=== PATIENT | male | born 1960 | race Caucasian/White ===

== ENCOUNTER 2017-03-18 07:55 | Day surgery (SDC) | payer OTHER, SELFPAY | END 2017-03-18 14:38 | disposition home or self-care (01) | PROVIDERS: Family Provider Internal Medicine Adolescent Medicine; Visit Provider Orthopaedic Surgery | DX: M17.0 Bilateral primary osteoarthritis of knee (principal); E11.9 Type 2 diabetes mellitus without complications; M23.203 Derangement of unspecified medial meniscus due to old tear or injury, right knee | CPT/HCPCS: 29881; 29879; 73560; 76000; 82962; 96375; J2405 ==

== ENCOUNTER → 2017-04-30 10:01 | Outpatient (CLI) | payer OTHER, SELFPAY ==
--- NOTE | 2017-04-30 10:05 | XR_ITS ---
XR knee LT 4V HISTORY: ITS.REASON: left knee pain ORDERING PHYSICIAN: Amos Grullon MD PATIENT AGE: 56 years COMPARISON: 09/19/2015 FINDINGS: Weightbearing views are performed. Severe osteoarthritic changes are present involving the medial compartment and patellofemoral joint. There is mild lateral tibial translation of 6 mm. Osteophytes are present at the knee joint There is a knee joint effusion with increased density in the suprapatellar region. IMPRESSION: Severe osteoarthritis of the left knee as described above which may be slightly worse when compared to the previous exam
== END ==
PROVIDERS: PCP Internal Medicine Adolescent Medicine; Visit Provider Orthopaedic Surgery
DX: M25.562 Pain in left knee (principal)
CPT/HCPCS: 73564

== ENCOUNTER → 2018-05-22 11:32 | Outpatient (CLI) | payer OTHER, SELFPAY ==
--- NOTE | 2018-05-22 11:37 | XR_ITS ---
XR knee LT 4V HISTORY: Left knee pain ITS.REASON: 4 views weightbearing ORDERING PHYSICIAN: Amos Grullon MD PATIENT AGE: 57 years COMPARISON: 04/30/2018 FINDINGS: Weightbearing views are performed along with patellar view. There are moderate to severe osteoarthritic changes of the medial compartment and patellofemoral joint. There is loss of the knee joint space medially with osteophyte formation and mild lateral tibial subluxation of 7 mm. No fracture or dislocation. There may be a small suprapatellar effusion. IMPRESSION: Overall no change in the moderate to severe osteoarthritic change with a small knee joint effusion
== END ==
PROVIDERS: PCP Internal Medicine Adolescent Medicine; Visit Provider Orthopaedic Surgery
DX: M17.12 Unilateral primary osteoarthritis, left knee (principal)
CPT/HCPCS: 73564

== ENCOUNTER → 2018-06-11 12:02 | Outpatient (CLI) | payer OTHER, SELFPAY ==
--- NOTE | 2018-06-11 | NM_ITS ---
History and Indications: Hypertension, diabetes, hyperlipidemia, tobacco use, shortness of breath and fatigue Procedure: Patient received a 0.4 mg of intravenous Lexiscan, resting heart rate was 92 bpm resting blood pressure 134/85, with Lexiscan maximum heart rate achieved was 112 bpm which is less than 85% of the maximum predicted heart rate and a blood pressure was 151/89. With Lexiscan patient under shortness of breath Electrocardiogram: Resting electrocardiogram showed sinus rhythm, with Lexiscan there is less than 1.[address] segment depression noted from the baseline EKG. The EKG portion of the Lexiscan Myoview is nondiagnostic. Cardiac stress and resting SPECT images: Cardiac stress and resting SPECT images were obtained using technetium 99 Myoview 30.7 mCi at stress and 10.8 mCi at rest. Gated SPECT further analysis of segmental wall motion and calculation of the ejection fraction also done. Cardiac stress and the rest images show a small area of decreased tracer activity in the anteroseptal, inferior and posterobasal wall mostly in the fixed pattern likely secondary to prior nontransmural myocardial scarring, computer derived ejection fraction of 58% with mild anteroseptal and inferior wall hypokinesis. Right ventricle is normal size and contractility. Conclusion: 1. The EKG portion of the Lexiscan Myoview is nondiagnostic. 2. Scintigraphic evidence of nontransmural myocardial scarring involving the anteroseptal, inferior and posterobasal wall, computer derived ejection fraction 58% segmental wall motion abnormality described above, right ventricle is normal size and contractility. 3. Abnormal Lexiscan Myoview study.
--- NOTE | 2018-06-11 14:41 | HMH.ITSHM ---
Current Home Medications as stated by this patient Gerardo Nicolas or territory account representative. [] metformin tamsulosin victoza humalog losartan levothyroxin
== END ==
PROVIDERS: PCP Internal Medicine Adolescent Medicine; Visit Provider Internal Medicine Adolescent Medicine
DX: R07.2 Precordial pain (principal)
CPT/HCPCS: 78452; 93017; A9502; J2785

== ENCOUNTER → 2018-06-15 10:37 | Outpatient (CLI) | payer OTHER, SELFPAY ==
[2018-06-15 11:52] LABS: Prostate Specific Ag Screen 1.3 ng/mL (0.0-4.0)
--- NOTE | 2018-06-15 15:14 | US_ITS ---
US scrotum Ordering Physician: Jorje Mayo MD Patient Age: 57 years: Male HISTORY: ITS.REASON: scrotal swelling Large right scrotum getting larger several years . TECHNIQUE: Ultrasound scrotum bilateral COMPARISON : None available ======== RIGHT TESTICLE:....3.1 cm length x4.1 x 3.85 cm There is a large hydrocele associated with the right hemiscrotum... Fairly clear Fluid surrounds the right testicle. Right testicle itself appears normal echotexture and appearance with no mass. The head of right epididymis appears normal measuring up to 9 x 5.5 mm. Normal color Doppler flow is seen to both testicles. No testicular mass is otherwise ========= LEFT TESTICLE:... 4.3 cm x3.25 cm X 2.36 cm. Left testicle appears intact with no mass.: Normal Doppler flow. Only scant increased fluid about the left testicle Head of left epididymis is slightly larger measuring up to 1.1 x 1 8 5-cm. IMPRESSION: .... 1. Large right hydrocele. .... Fairly clear Fluid surrounds the right testicle 2. The right and left testicle appear normal satisfactory:. ... Normal color Doppler flow.... No testicular mass.. 3.... Scant hydrocele about left testicle
[2018-06-17 14:36] LABS: Testosterone, Total, LC/MS 174.9 ng/dL (264.0-916.0)
== END ==
PROVIDERS: Visit Provider Urology
DX: N40.0 Benign prostatic hyperplasia without lower urinary tract symptoms (principal); R97.20 Elevated prostate specific antigen [PSA]; N50.89 Other specified disorders of the male genital organs
CPT/HCPCS: 36415; 76870; 84402; 84403; G0103

== ENCOUNTER → 2018-07-22 16:31 | Outpatient (CLI) | payer OTHER, SELFPAY ==
--- NOTE | 2018-07-22 | XR_ITS ---
XR chest 2V HISTORY: ITS.REASON: HYPERTENSION ORDERING PHYSICIAN: Amos Grullon MD PATIENT AGE: 57 years COMPARISON: 03/03/2017 FINDINGS: The cardiomediastinal silhouette and pulmonary vascularity are within normal limits. The lungs are clear without infiltrates, suspicious nodules, or pleural effusions. There are degenerative changes in the thoracic spine No acute bony abnormalities. IMPRESSION: No change with no acute finding
[2018-07-22 16:35] LABS: Microscopic, Urine URINE MICROSCOPIC (MICROSCOPIC)
[2018-07-22 16:56] LABS: Appearance,Urine CLEAR (Clear); Blood, Urine Negative (Negative); Color,Urine YELLOW (Yellow); Glucose,Urine (UA) Negative (Negative); Ketones,Urine Negative (Negative); Leukocyte Esterase,Urine Negative (Negative); Nitrate,Urine Negative (Negative); Protein,Urine TRACE (Negative); Specific Gravity, Urine >= 1.030 (1.005-1.030)
[2018-07-22 17:12] LABS: Bacteria,Urine Trace /lpf; Bilirubin,Urine Negative (Negative); Calcium Oxalate Crystals,Urine Trace /lpf; WBC,Urine Occasional #/hpf (0-3)
[2018-07-22 17:35] LABS: Basophils # 0.1 K/mm3 (0-0.2); Basophils % 0.6 % (0.1-2.0); Eosinophils # 0.5 K/mm3 (0.0-0.4); Hematocrit 41.6 % (42.0-52.0); Hemoglobin 14.2 g/dL (14.1-18.0); Lymphocytes # 2.3 K/mm3 (0.7-4.5); Mean Corpuscular HGB Conc 34.1 g/dL (31.8-35.4); Mean Corpuscular Hemoglobin 30.9 pg (27.0-31.2); Mean Corpuscular Volume 90.6 fl (80-94); Mean Platelet Volume 7.2 fl (7.4-10.4); Monocytes # 0.6 K/mm3 (0.1-1.0); Monocytes % 6.8 % (1.7-9.3); Neutrophils % 59.6 % (37.0-80.0); Platelet Count 228 K/mm3 (142-424); Red Blood Count 4.59 M/mm3 (4.60-6.20); Red Cell Distribution Width 13.3 % (11.5-17.5); White Blood Count 8.4 K/mm3 (4.8-10.8)
[2018-07-22 18:33] LABS: Alanine Aminotransferase 39 U/L (12-78); Albumin/Globulin Ratio 1.1 (1.1-1.8); Alkaline Phosphatase 73 U/L (46-116); Anion Gap 11.5 mEq/L (5-15); Aspartate Amino Transferase 17 U/L (15-37); Bilirubin,Total 0.6 mg/dL (0.2-1.0); Blood Urea Nitrogen 20 mg/dL (7-18); Calcium 9.5 mg/dL (8.5-10.1); Carbon Dioxide 29 mmol/L (21.0-32.0); Chloride 104 mmol/L (98-107); Creatinine,Serum 0.97 mg/dL (0.70-1.30); Estimated Glomerular Filt Rate 79 ml/min (>60); GFR (African American) 96 ML/MIN (>60); Globulin 3.6 gm/dl (1.3-3.2); Glucose 165 mg/dL (74-106); Potassium 4.5 mmoL/L (3.5-5.1); Sodium 140 mmol/L (136-145); Total Protein,Serum 7.6 gm/dL (6.4-8.2)
[2018-07-22 18:52] LABS: Hemoglobin A1C 6.6 % (0.0-7.0)
== END ==
PROVIDERS: PCP Orthopaedic Surgery; Visit Provider Orthopaedic Surgery
DX: Z01.818 Encounter for other preprocedural examination (principal); M17.12 Unilateral primary osteoarthritis, left knee
CPT/HCPCS: 36415; 71046; 80053; 81001; 83036; 85025; 86850

== ENCOUNTER 2018-07-27 06:05 | Inpatient (IN) ==
--- NOTE | 2018-07-27 07:26 | Progress Note ---
[facility] Anesthesia Checklist - Patient Identification Patient Identification: Arm Band, Verbal (Name & ) - Structural Data Admitted From: Home Planned Operative Procedure/s: Left TKA Consent for Planned Operative Procedure(s) Verified: Yes Verified Documents: Surgical Consent, History and Physical - NPO Status Verified Time NPO: 22:00 - Chart Verification Results Verified: CBC, BMP - Additional verifications Fingerstick Blood Glucose: 167 Patient : No Anesthesia Reactions: No - Airway Assessment C-Spine Mobility Assessed: Yes TMJ Mobility Assessed: Yes Dentition: Dentures-good fit - Neurological Assessment Level of Consciousness: Awake Hx Seizures: No Numbness or tingling in extremities: Yes (Peripheral neuropathy) - Anesthesia Plan Anesthesia Risk discussed: Yes Anesthesia Plan: Verified ASA Class: III Anesthesia Type: Spinal (With peripheral nerve block) [facility] History I have reviewed the patient's past medical history: Yes Medical History: Reports:: BPH, Cancer (Skin), Chronic Obstructive Pulmonary Disease (COPD), Diabetes Mellitus Type 2, Hyperlipidemia, Hypertension, Kidney Stones Denies:: Internal Pacemaker, MRSA, Seizures *Have you ever received a pneumonia vaccine?: No *Have you received a flu vaccine this season?: Yes Other Medical History: Reports: Arthritis, Hypothyroidism, Other (Obesity, AZIZA uses CPAP). Denies: Blood Transfusion Reaction Laterality Cases: Right: Arthroscopy Knee, Bilateral: Carpal Tunnel Release Other Surgeries: Yes: Other. No: Pacemaker Amputation: No Fractures: No - *Social History Educational Level: Attended High School Smoking Status: Former smoker Tobacco Type: cigarettes # Packs/Day (cigarettes): 1 #Yrs smoked (if former smoker): 40 Alcohol Intake: never Substance Use Type: denies use *Occupational Status:: employed Housing: house Household Members: spouse *Travel in the last 8 weeks: None - Psychiatric History Expresses thoughts of harming self/others: None Suicide Plan Description: No Plan Family Hx:: Heart Attack, Diabetes
--- NOTE | 2018-07-27 13:09 | Progress Note ---
[facility] Anesthesia Record Part I Intake, IV Amount: 2,000 Estimated blood loss (mL): 200 Urine output (mL): 400 Blood Products used (#): none Blood Pressure: 164/101 SaO2: 92 Pulse Rate: 110 Respiratory Rate: 16 Temperature: 97.9 F Patient is:: Awake, Drowsy, Stable Stable to PACU at:: 13:03
--- NOTE | 2018-07-27 13:09 | Progress Note ---
[facility] Anesthesia Record Part II Discharge Time: 13:33 Destination: Medical Surgical Department PACU nurse assessment reviewed?: Yes Patient Condition:: Good Anesthesia Complications:: None Swallowing reflex intact?: Yes Cyanosis?: No
--- NOTE | 2018-07-27 13:40 | Operative Note ---
Date of procedure: 07/27/18 Pre-op Diagnosis:: Advanced degenerative arthritis, left knee Post-op Diagnosis:: Same Procedure performed:: Cemented total knee arthroplasty, left knee Surgeon:: Amos Grullon MD Forest Economics Professor(s):: Sherry Elliott SENIOR SALES REPRESENTATIVE:: Colton De Dios Anesthesia: regional (Femoral and sciatic nerve blocks), spinal, LMA Estimated blood loss (mL): 200 Clinical Note:: Patient is a 57-year-old male with end-stage osteoarthritis with a progressive varus deformity and flexion contracture presented with unremitting severe pain not relieved by conservative management. The pain is advanced to the point that it is becoming a hazard for him with risk of falling and injuring himself. Total knee arthroplasty is indicated to relieve the pain, improve function, reduce the risk of falls and improve quality of life. Please refer to my office note for full details. Operative findings:: As noted on the preoperative evaluation, the knee joint had a 10 degrees of fixed flexion and fixed varus deformity. Preoperative knee range of flexion under anesthesia was 10-110 of flexion only. As seen on the x-rays, there are advanced degenerative changes over all 3 compartments with [id number] appearance over the the medial and patellofemoral compartments. The menisci and cruciate ligaments are significantly degenerated. Wide spread osteophyte formation over all 3 compartments. The intercondylar notch was almost obliterated and filled with osteophytes. There were also significant osteophyt es over the posterior aspect of the femoral condyles. Overall bone quality is good. Operative note:: On the day of the surgery the patient and his were seen in the preoperative area. I have reviewed the clinical and x-ray findings with the patient. I again discussed the diagnosis, natural history and management options in detail including both nonsurgical and surgical. She has end-stage degenerative arthritis of his LEFT knee and has failed to respond satisfactorily to conservative management so far and has opted for a RIGHT total knee arthroplasty. She has had a successful left total knee arthroplasty few years ago. Her right knee joint is stiff and painful, and is limiting her mobility, ADLs and quality of life. Also her right knee gives out and she is at risk of falls resulting in fractures. She mobilizes with a cane as needed. We again discussed the details of the procedure, risks and benefits and alternatives in detail. The complications discussed include but are not limited to infection, injury to nerves and blood vessels including injury to popliteal artery, injury to tendons and ligaments, DVT and PE, fat embolism, intraoperative fracture, limb length inequality, patella fracture, patellofemoral instability, patellar clunk syndrome, quadriceps and patellar tendon rupture, implant failure, component loosening, periprosthetic femur and tibia fractures, stiffness(arthrofibrosis), limp, incomplete relief of pain, incomplete functional recovery, likely need for further surgery in future including revision and anesthetic complications including heart attack, stroke and even . We discussed how any of these events can be devastating. Patient is Orthodoxy and indicated to us that she does not want to receive any blood transfusion or blood products. We have discussed nonsurgical alternatives as well. Patient understands wishes to proceed with a RIGHT total knee arthroplasty and I believe that he is fully informed as to the risks, benefits, and alternatives including nonsurgical alternatives. We also discussed the postoperative course including the rehab and physical therapy required. She lives by herself and wants to go to a [facility] facility for [facility]hab after surgery. A physical examination was performed and documented. Patient understood the risks, agreed to proceed with surgery, signed the consent form and no guarantees or assurances were given or implied. The limb was appropriately marked and initialed by me. The patient was then brought to the operating room and a spinal anesthesia was administered by the mold dumper. During the procedure, patient was later converted to general anesthesia with LMA. Prior to that he had femoral and sciatic nerve blocks in the pre-anesthetic area. The patient was then positioned supine on the operating table. All the bony prominences were appropriately padded. A well-padded tourniquet cuff was placed high over the upper thigh. The LEFT knee was then prepped with isopropyl alcohol followed by chlorhexidine and draped in the usual sterile fashion. Prior to this, patient had used Hibiclens for a total of 5 days prior to the surgery and also used topi gal intranasal Bactroban. The entire operative team wore isolation suits and the Operating Room traffic was controlled. The skin incision was marked for a medial parapatellar approach to the knee joint. The entire operative site was sealed off with Ioban drape. A preprocedure timeout was performed as per hospital protocol. At the start of the procedure administration of 2 g of prophylactic IV Ancef was confirmed with the anesthetic team. Also patient received 1 g of IV tranexamic acid before starting the procedure to reduce the postoperative blood loss. A preprocedure timeout was performed as per hospital protocol. The limb was exsanguinated with Esmarch bandage, the knee joint flexed beyond 90 and the tourniquet cuff was inflated to 325 mm Hg. Please see the nursing records for a total tourniquet time. I then made a midline incision utilizing a #10 scalpel blade. Electrocautery was used to seal off subcutaneous vessels. The extensor mechanism was exposed, marked and a curvilinear incision made for a medial parapatellar approach using the scalpel blade. The patella was everted carefully and the fat pad resected to allow sufficient visualization of the proximal tibia. Extensive osteophyte formation was noted over all 3 compartments. The osteophytes were removed with rongeurs. The intercondylar notch was filled with osteophytes and the anterior cruciate ligament noted to be degenerative. The menisci were also degenerate and the anterior aspects of both menisci were resected. An appropriate medial release was performed with the knife and Nash elevator. A step drill was used to open the intramedullary canal and the distal cutting guide was placed. The jig was pinned into position and the intramedullary guide trista removed. The distal cut was made at 5 degrees of valgus and then the posterior referencing sizing jig was placed. The femur sized best at a size 6 femur for the Windy persona system. Drill holes were made for the 4-in-1 cutting block in 3 degrees of external rotation. We then placed the 4-in-1 cutting block in position and the cross pins were added stabilizing the block. The papa wing utilized to ensure notching of the anterior cortex would not occur. The anterior cut was made followed by the posterior cut then the posterior chamfer and finally the anterior chamfer cuts in that order. Soft tissue was protected throughout with careful retraction using the Z retractors. We checked for trueness of the cuts and then moved on to the tibia. The extra medullary guide was placed and aligned from the medial one third of the tibial plateau down to the second metatarsal base. We pinned cutting block in position for minimal resection of the tibia from the medial side which was more severely involved with arthritis, checked the alignment, protected the soft tissues with appropriate retractors and resected with the Shahzad saw. The resected tibial plateau articular surface was removed and sized it at a size F. We ensured correctness of the cut and correct posterior slope and carefully preserved the posterior cruciate ligament. Using the laminar boilermaker's assistant to distract the bones, we carefully resected the remaining portions of the medial and lateral menisci, removed the osteophytes from the posterior femoral condyles and the medial tibial plateau. We then checked the flexion and extension gaps and found them to be equal and well balanced. We trialed the femur and the tibia with a polyethylene insert and ranged the knee to ensure full flexion and extension and checked for ligamentous stability. We then everted the patella and measured the thickness with calipers. The patella measured 21 mm thick and a minimal resection (8mm) of the patella was carried out using the appropriate cutting guide. I then made the holes for a 3 pegged patellar button using the patella peg drill guide. We had lateralized the femur and medialized the patella intentionally for a better patellar tracking. We placed trial components and noted that a 12 mm thick polyethylene to fit best. This gave us appropriate range of motion with proper ligamentous stability. We allowed this to be free- floating and then checked it and made sure it was in appropriate position in relation to the tibial tubercle. We also used tibial alignment trista to check for satisfactory position of the base plate and markings were made with electrocautery on the proximal tibia. We then completed the femoral preparation by making lug holes for the femoral component and removed the trial components leaving the tibial baseplate in position. I then pinned the tibial base plate to the top of the tibia in correct alignment and completed the drilling and broaching of the proximal tibia. We then removed the baseplate and drilled multiple holes into the subchondral sclerotic bone of the medial tibia with a small trocar tipped pin to augment cement fixation. I then placed an appropriately prepared bone plug into the hole in the distal femur. I then copiously irrigated the knee with pulse lavage and then dried the cut surfaces. We then cemented the tibial tray, the femoral component, and placed a 12 mm trial polyethylene insert and brought the knee into full extension. We then cemented the 3 pegged patella button and held it with a clamp. We allowed the cement to set and then inspected the knee joint and removed excess cement with an osteotome. We then placed the 12 mm definitive polyethylene tibial insert ensuring that the dovetails fit appropriately and that the polyethylene was down and seated into the tibial tray properly. The knee joint was put through range of motion and noted to be stable in both AP and ML direction; the patella was noted to be tracking appropriately with no thumb technique. The knee joint was then soaked with dilute Betadine (0.35 percent) solution for 3 minutes followed by suctioning of the solution and pulsatile lavage with the 1 L of normal saline. The tourniquet was deflated and hemostasis obtained with diathermy cautery. Another gram of tranexamic acid was given intravenously by the mold dumper at the time of deflating the tourniquet. The knee joint was again thoroughly irrigated with the pulse lavage and good hemostasis was confirmed before proceeding with wound closure. The capsule/extensor mechanism was closed with #1 Vicryl [id number] sutures ensuring a watertight closure. Next the subcutaneous tissue was closed with 2-0 Vicryl interrupted sutures. The skin was closed with subcuticular 4-0 Monocryl sutures, Dermabond and Steri- Strips. Sterile dressings were applied consisting of Silverlon dressing, ABDs, soft roll and secured in place with Mal wrap. No drains were placed. The patient was then transferred from the operating table onto the bed. The tibialis posterior and dorsalis pedis pulses were noted 2+ with good capillary refill in the foot. The patient was then reversed from the anesthetic and transported to the postoperative recovery area in a stable condition. Patient tolerated the procedure well and there were no immediate complications. The swab, needle and instrument counts were correct, according to the scrub team, at the end of the procedure. Portable x-rays of the knee 2 views were obtained in the recovery area which showed the components were well fixed in a satisfactory position without any complications. The knee was placed in a knee immobilizer which should be continued when standing and walking, until patient regains full quadriceps control. Postoperatively, institute and continue standard precautions and physical therapy for a standard total knee arthroplasty starting on postoperative day 1. Patient can be mobilized full weightbearing as tolerated. Implants: Windy Persona, 5 degrees stemmed LEFT tibial baseplate- size F Windy Persona all poly-patellar component- 35 mm/9 mm Windy Persona posterior stabilized standard femoral component, size 9 LEFT Windy Persona Vivacit-E highly cross-linked polyethylene posterior stabilized articular surface, size 11 mm LEFT Biomet Refobacin bone cement R x2. Industry banking representative: Javier Richards ([employer]) Condition: stable Disposition: PACU Specimens:: None Complications:: None
--- NOTE | 2018-07-27 15:40 | Progress Note ---
Subjective Date: 07/27/18 Time: 15:35 Principal diagnosis: Status post total knee arthroplasty, left knee Interval history: Patient is status post LEFT total knee arthroplasty post op day #0. Patient is sitting out in the chair. Says he is doing well and reports no problems. Patient reports no pain or discomfort in his knee. No history of any nausea or vomiting. No history of any cough, chest pain, shortness of breath or palpitations. PN: Obj Ex Vital signs: Temp Pulse Resp BP Pulse Ox 97.8 F 118 H 20 142/86 H 98 07/27/18 15:00 07/27/18 15:00 07/27/18 15:00 07/27/18 15:00 07/27/18 15:00 Narrative: Laboratory Results - last 24 hr 07/27/18 06:20: Blood Type O Positive, Antibody Screen Negative 07/27/18 06:21: POC Glucose 167 H 07/27/18 07:47: Urine Color Yellow, Urine Appearance Clear, Urine pH 6.5, Ur Specific Clayton 1.020, Urine Protein Trace, Urine Glucose (UA) Negative, Urine Ketones Negative, Urine Blood Negative, Urine Nitrate Negative, Urine Bilirubin Negative, Urine Urobilinogen 0.2, Ur Leukocyte Esterase Negative, Urine Bacteria Trace 07/27/18 13:34: POC Glucose 216 H Exam General appearance: alert, active, awake, no acute distress Cardiovascular: regular rate & rhythm, normal peripheral pulses Respiratory: No respiratory distress noted, speaks in full sentences ABD: soft and non tender Neuro: alert, awake, oriented x 3 Genitourinary: Catheter in situ. On examination of the lower extremities the limb lengths are equal. On examination of the left knee the dressings are clean, dry and intact. No soakage or strikethrough noted. Distal pulses are 1+. Patient has numbness in the left lower extremity from nerve blocks. - Urinary Catheter Management Coude Cath placed during this visit: yes Urethral indwelling: Yes Reason for continuing: Surgical procedure Insertion date: 07/27/18 Insertion time: 07:47 Progress Note: A&P (1) Primary osteoarthritis of left knee Status: Chronic Current Visit: No (2) History of total knee arthroplasty Start date: 07/27/18 Status: Acute Current Visit: Yes Assessment and Plan for All Diagnoses:: I have reviewed the clinical and operative findings and procedure performed with the patient and his . Postoperative check x-rays are satisfactory and paper copies of the x-rays given to patient. Patient is already seen by the physical therapist and made to sit out of bed. He appears comfortable and drinking pop. Continue standard postop management for primary total knee arthroplasty. Continue knee immobilizer when standing and walking until patient regains full quadriceps control and is able to actively straight leg raise. Case management consult regarding discharge planning. Medical management as per Dr. Ferrara.
--- NOTE | 2018-07-27 17:59 | Consult Report ---
*Admission Date: 07/27/18 *Chief complaint: Status post left total knee replacement *History of present illness: 57-year-old white male who underwent total knee replacement this morning, transferred to second floor, consulted for medical management. [facility] History I have reviewed the patient's past medical history: Yes Medical History: Reports:: BPH, Cancer (Skin), Chronic Obstructive Pulmonary Disease (COPD), Diabetes Mellitus Type 2, Hyperlipidemia, Hypertension, Kidney Stones Denies:: Internal Pacemaker, MRSA, Seizures *Have you ever received a pneumonia vaccine?: No *Have you received a flu vaccine this season?: Yes Other Medical History: Reports: Arthritis, Hypothyroidism, Other (Obesity, AZIZA uses CPAP). Denies: Blood Transfusion Reaction Laterality Cases: Right: Arthroscopy Knee, Bilateral: Carpal Tunnel Release Other Surgeries: Yes: Other. No: Pacemaker Amputation: No Fractures: No - *Social History Educational Level: Attended High School Smoking Status: Former smoker Tobacco Type: cigarettes # Packs/Day (cigarettes): 1 #Yrs smoked (if former smoker): 40 Alcohol Intake: never Substance Use Type: denies use *Occupational Status:: employed Housing: house Household Members: spouse *Travel in the last 8 weeks: None - Psychiatric History Expresses thoughts of harming self/others: None Suicide Plan Description: No Plan Family Hx:: Heart Attack, Diabetes Review of Systems - Review of Systems Review of systems:: pertinent systems reviewed and negative unless documented below Denies shortness of air chest pain, denies pain. Denies palpitations. Good appetite, just completed 100% of his supper. Meds Home Medications Medication Instructions Recorded Confirmed Type levothyroxine 50 mcg capsule 50 mcg PO DAILY 03/26/17 07/27/18 History metformin 1,000 mg tablet 500 mg PO BID 03/26/17 07/27/18 History tamsulosin 0.4 mg capsule 0.4 mg PO QDAY 03/26/17 07/27/18 History insulin degludec (U-100) 100 10 unit SQ DAILY 06/02/18 07/27/18 History unit/mL (3 mL) subcutaneous pen liraglutide 0.6 mg/0.1 mL (18 mg/3 0.6 mg SQ DAILY 06/02/18 07/27/18 History mL) subcutaneous pen injector losartan 100 mg tablet 100 mg PO DAILY 06/02/18 07/27/18 History Chlorhexidine Gluconate 1 applic TOPICAL ONCE 07/27/18 07/27/18 History Rosuvastatin Calcium 20 mg PO HS 07/27/18 07/27/18 History mupirocin 2 % nasal ointment 2 % INTRANASAL ONCE 07/27/18 07/27/18 History Allergies Allergy/AdvReac Type Severity Reaction Status Date / Time No Known Allergies Allergy Verified 07/27/18 06:22 Exam Vital signs and Labs for Last 24 Hours: Temp Pulse Resp BP Pulse Ox 98.1 F 115 H 20 179/95 H 94 L 07/27/18 17:00 07/27/18 17:00 07/27/18 17:00 07/27/18 17:00 07/27/18 17:00 Laboratory Results - last 24 hr 07/27/18 06:20: Blood Type O Positive, Antibody Screen Negative 07/27/18 06:21: POC Glucose 167 H 07/27/18 07:47: Urine Color Yellow, Urine Appearance Clear, Urine pH 6.5, Ur Specific [place] 1.020, Urine Protein Trace, Urine Glucose (UA) Negative, Urine Ketones Negative, Urine Blood Negative, Urine Nitrate Negative, Urine Bilirubin Negative, Urine Urobilinogen 0.2, Ur Leukocyte Esterase Negative, Urine Bacteria Trace 07/27/18 13:34: POC Glucose 216 H I & O for Last 24 hours: Intake & Output 07/25/18 07/26/18 07/27/18 07/28/18 11:59 11:59 11:59 11:59 Intake Total 2360 / 2360 Output Total 500 / 500 Balance 1860 / 1860 Weight 275 lb 288 lb 3 oz Narrative: Up in chair, feet elevated, cold pack dressing on left knee. Right leg and skilled boot. Oropharynx clear, heart rate regular. Lungs clear. Abdomen soft. Good distal tissue perfusion in all extremities. Internal Medicine - CN: Reslt - Labs Labs: Urine 07/27/18 Range/Units 07:47 Urine Color Yellow (Yellow) Urine Appearance Clear (Clear) Urine pH 6.5 (5.0-8.5) Ur Specific [place] 1.020 (1.005-1.030) Urine Protein Trace (Negative) Urine Glucose (UA) Negative (Negative) Assessment and Plan (1) Primary osteoarthritis of left knee Current visit: No Status: Chronic Category: Medical Code(s): M17.12 - Unilateral primary osteoarthritis, left knee (2) History of total knee arthroplasty Start date: 07/27/18 Current visit: Yes Status: Acute Category: Surgical Code(s): Z96.659 - Presence of unspecified artificial knee joint (3) Hypertension, essential Current visit: Yes Status: Acute Category: Medical Code(s): I10 - Essential (primary) hypertension Overall patient seems to be doing very well. No changes in management at this point. On appropriate anticoagulation therapy. Blood pressure medicines restarted. Slightly elevated but in the immediate postoperative period would just observe. Plan for Sebastian catheter out tomorrow and increased mobilization.
[2018-07-28 07:17] LABS: Basophils % 0.1 % (0.1-2.0); Eosinophils % 0.1 % (0.1-12.0); Hematocrit 36.2 % (42.0-52.0); Hemoglobin 12.3 g/dL (14.1-18.0); Lymphocytes # 2.1 K/mm3 (0.7-4.5); Lymphocytes % 16.6 % (10-50); Mean Corpuscular HGB Conc 33.9 g/dL (31.8-35.4); Mean Corpuscular Hemoglobin 30.8 pg (27.0-31.2); Mean Corpuscular Volume 90.9 fl (80-94); Mean Platelet Volume 7.3 fl (7.4-10.4); Monocytes % 8.1 % (1.7-9.3); Neutrophils # 9.4 K/mm3 (1.8-7.8); Neutrophils % 75.1 % (37.0-80.0); Platelet Count 201 K/mm3 (142-424); Red Blood Count 3.99 M/mm3 (4.60-6.20); Red Cell Distribution Width 13.7 % (11.5-17.5); White Blood Count 12.5 K/mm3 (4.8-10.8)
[2018-07-28 07:19] LABS: Calcium 8.4 mg/dL (8.5-10.1)
--- NOTE | 2018-07-28 07:19 | Pharmacy Consult Notes ---
[facility] Pharmacy VTE Monitoring - Patient Demographics Admission date: 07/27/18 Report Date: 07/28/18 Time: 07:18 Allergies/Adverse Reactions: Patient Allergies No Known Allergies Allergy (Verified 07/27/18 06:22) Height: 1.8 m Weight: 135.652 kg Patient Problems: Current Active Problems (Updated 07/27/18 @ 17:59 by Cameron Sow MD) History of total knee arthroplasty (Acute) Hypertension, essential (Acute) - VTE Risk Was VTE Risk Assessment Performed: Yes VTE Score: 6 VTE Risk Level: Moderate Risk Clinical Trial Participant: No - Prophylaxis VTE Prophylaxis Ordered?: Yes Types of VTE Prophylaxis: IPCS Knee High Location of Applied Device: Bilateral Lower Extremeties
--- NOTE | 2018-07-28 13:51 | Progress Note ---
Subjective Date: 07/28/18 Time: 15:00 Principal diagnosis: Status post total knee arthroplasty, left knee Interval history: Patient is status post left total knee arthroplasty, postoperative day 1. Patient is sitting on the chair. He says he had an uneventful night. He reports some pain in his left knee but says it is well controlled with medication. He still reports some paresthesias over the left foot from the nerve blocks. No history of any nausea or vomiting. No history of any cough, chest pain, shortness of breath or palpitations. Patient says he is eating and drinking well. Urinary catheter was DC'd this morning. PN: Obj Ex Vital signs: Temp Pulse Resp BP Pulse Ox 98.6 F 104 H 18 167/74 H 94 L 07/28/18 12:00 07/28/18 12:00 07/28/18 12:00 07/28/18 12:00 07/28/18 12:00 Narrative: Laboratory Results - last 24 hr 07/27/18 07:47: Urine Color Yellow, Urine Appearance Clear, Urine pH 6.5, Ur Specific [place] 1.020, Urine Protein Trace, Urine Glucose (UA) Negative, Urine Ketones Negative, Urine Blood Negative, Urine Nitrate Negative, Urine Bilirubin Negative, Urine Urobilinogen 0.2, Ur Leukocyte Esterase Negative, Urine Bacteria Trace 07/28/18 05:25: WBC 12.5 H, RBC 3.99 L, Hgb 12.3 L, Hct 36.2 L, MCV 90.9, MCH 30.8, MCHC 33.9, RDW 13.7, Plt Count 201, MPV 7.3 L, Neut % (Auto) 75.1, Lymph % (Auto) 16.6, [place] % (Auto) 8.1, Eos % (Auto) 0.1, Baso % (Auto) 0.1, Neut # (Auto) 9.4 H, Lymph # (Auto) 2.1, [place] # (Auto) 1.0, Eos # (Auto) 0.0, Baso # (Auto) 0.0 07/28/18 05:25: Sodium 138, Potassium 4.0, Chloride 101, Carbon Dioxide 30, Anion Gap 11.0, BUN 16, Creatinine 0.90, Estimated Creat Clear 94, Estimated GFR 86, Est GFR ( Amer) 105, Glucose 158 H, Calcium 8.4 L Intake & Output 07/26/18 07/27/18 07/28/18 07/29/18 11:59 11:59 11:59 11:59 Intake Total 4170 / 4170 240 / 240 Output Total 3500 / 3500 250 / 250 Balance 670 / 670 -10 / -10 Weight 299 lb 1 oz Exam: General appearance: alert, active, awake Cardiovascular: regular rate & rhythm, normal peripheral pulses Respiratory: No respiratory distress noted, speaks in full sentences ABD: soft and non tender Neuro: alert, awake, oriented x 3 On examination of the lower extremities the limb lengths are equal. On examination of the left knee the dressings are clean, dry and intact. Calf is soft and nontender. Distal pulses are 1+ bilaterally. Capillary refill is brisk. Decreased sensation noted over the left foot likely from the nerve blocks. He is actively moving the ankle, foot and the toes. - Urinary Catheter Management Coude Cath placed during this visit: yes Urethral indwelling: Yes Reason for continuing: Surgical procedure Insertion date: 07/27/18 Insertion time: 07:47 Progress Note: A&P (1) Primary osteoarthritis of left knee Status: Chronic Current Visit: No (2) History of total knee arthroplasty Status: Acute Current Visit: Yes (3) Hypertension, essential Status: Acute Current Visit: Yes Assessment and Plan for All Diagnoses:: I have reviewed the clinical findings and progress with the patient and his . Advised him to avoid placing pillow behind the knee; use knee immobilizer when weightbearing and walking until he regains full quadriceps control and is able to actively straight leg raise. Discontinue IV fluids as patient is eating and drinking well. Continue standard postop rehab for a primary total knee replacement. Continue DVT prophylaxis and as needed pain medication. Care management looking into discharge planning. Medical management as per Dr. Ferrara.
--- NOTE | 2018-07-28 17:16 | Progress Note ---
Internal Medicine - PN: Subj *Date: 07/28/18 *Time: 09:39 Interval history: Mr. Alicea did well overnight. Ambulated this morning with the help of physical therapy. Denies any chest pain, shortness of breath, nausea vomiting, significant knee pain. States the pain is much better than he anticipated. Has had a bowel movement. Tolerating p.o. intake. Exam Vital signs and Labs for Last 24 Hours: Temp Pulse Resp BP Pulse Ox 98.9 F 112 H 18 136/72 97 07/28/18 07:31 07/28/18 07:31 07/28/18 07:31 07/28/18 07:31 07/28/18 07:31 Laboratory Results - last 24 hr 07/27/18 07:47: Urine Color Yellow, Urine Appearance Clear, Urine pH 6.5, Ur Specific [place] 1.020, Urine Protein Trace, Urine Glucose (UA) Negative, Urine Ketones Negative, Urine Blood Negative, Urine Nitrate Negative, Urine Bilirubin Negative, Urine Urobilinogen 0.2, Ur Leukocyte Esterase Negative, Urine Bacteria Trace 07/27/18 13:34: POC Glucose 216 H 07/28/18 05:25: WBC 12.5 H, RBC 3.99 L, Hgb 12.3 L, Hct 36.2 L, MCV 90.9, MCH 30.8, MCHC 33.9, RDW 13.7, Plt Count 201, MPV 7.3 L, Neut % (Auto) 75.1, Lymph % (Auto) 16.6, [place] % (Auto) 8.1, Eos % (Auto) 0.1, Baso % (Auto) 0.1, Neut # (Auto) 9.4 H, Lymph # (Auto) 2.1, [place] # (Auto) 1.0, Eos # (Auto) 0.0, Baso # (Auto) 0.0 07/28/18 05:25: Sodium 138, Potassium 4.0, Chloride 101, Carbon Dioxide 30, Anion Gap 11.0, BUN 16, Creatinine 0.90, Estimated Creat Clear 94, Estimated GFR 86, Est GFR ( Amer) 105, Glucose 158 H, Calcium 8.4 L I & O for Last 24 hours: Intake & Output 07/25/18 07/26/18 07/27/18 07/28/18 23:59 23:59 23:59 23:59 Intake Total 2660 / 2660 1190 / 1190 Output Total 500 / 500 3000 / 3000 Balance 2160 / 2160 -1810 / -1810 Weight 130.72 kg 135.652 kg Narrative: Sitting upright in chair. Alert, oriented x3, and interactive. Regular rate and rhythm, no murmurs. Lungs clear to auscultation with good air movement bilaterally. Left knee in ice wrap, bandage in place. Pulses intact distally (2+). Abdomen soft nontender. Assessment and Plan (1) Primary osteoarthritis of left knee Current visit: No Status: Chronic Category: Medical Code(s): M17.12 - Unilateral primary osteoarthritis, left knee (2) History of total knee arthroplasty Start date: 07/27/18 Current visit: Yes Status: Acute Category: Surgical Code(s): Z96.659 - Presence of unspecified artificial knee joint (3) Hypertension, essential Current visit: Yes Status: Acute Category: Medical Code(s): I10 - Essential (primary) hypertension - Assessment and plan all Dx Assessment and Plan for all problems:: Overall patient seems to be doing very well. No changes in management at this point. On appropriate anticoagulation therapy. Pain adequately controlled Blood pressure medicines continued Slightly elevated but in the postoperative period would just observe. Continue PT while inpatient. Plan for outpatient Pt in [place] at time of DC.
--- NOTE | 2018-07-29 08:01 | Progress Note ---
Internal Medicine - PN: Subj *Date: 07/29/18 *Time: 08:01 Interval history: Patient did well overnight, minimal pain on current medications. No cardiopulmonary problems. Exam Vital signs and Labs for Last 24 Hours: Temp Pulse Resp BP Pulse Ox 99.1 F 108 H 21 155/89 H 94 L 07/29/18 04:00 07/29/18 04:00 07/29/18 04:00 07/29/18 04:00 07/29/18 04:00 I & O for Last 24 hours: Intake & Output 07/26/18 07/27/18 07/28/18 07/29/18 11:59 11:59 11:59 11:59 Intake Total 4170 / 4170 480 / 480 Output Total 3500 / 3500 2100 / 2100 Balance 670 / 670 -1620 / -1620 Weight 299 lb 1 oz 282 lb Narrative: Patient is alert, pleasant. Oriented x3. Heart rate regular. Lungs clear. Abdomen soft. Assessment and Plan (1) Primary osteoarthritis of left knee Current visit: No Status: Chronic Category: Medical Code(s): M17.12 - Unilateral primary osteoarthritis, left knee (2) History of total knee arthroplasty Start date: 07/27/18 Current visit: Yes Status: Acute Category: Surgical Code(s): Z96.659 - Presence of unspecified artificial knee joint (3) Hypertension, essential Current visit: Yes Status: Acute Category: Medical Code(s): I10 - Essential (primary) hypertension - Assessment and plan all Dx Assessment and Plan for all problems:: Overall doing well. No changes in medication. Cleared for discharge from medicine service.
--- NOTE | 2018-07-29 20:01 | Discharge Summary ---
General - General Admission date:: 07/27/18 Discharge date: 07/29/18 HPI HPI: Patient is a 57-year-old male with advanced degenerative joint disease of the left knee who is admitted to the hospital electively following an uncomplicated primary total knee arthroplasty on 07/27/2018. He has not responded well to conservative management including NSAID, Tylenol, and intra-articular steroid injections in the past. Total knee arthroplasty is indicated to reduce the risk of falls, improve his pain and mobility and quality of life. The surgical and nonsurgical alternatives were discussed in detail with the patient as well as the risks and benefits of the surgery. She has a history of BPH, Cancer (Skin), Chronic Obstructive Pulmonary Disease (COPD), Diabetes Mellitus Type 2, Hyperlipidemia, Hypertension, Kidney Stones and osteoarthritis. Hospital Course Hospital Course: Patient underwent an uncomplicated primary left total knee arthroplasty on 07/27/2018. Following surgery patient progressed well without any complications. His postoperative check x-ray was satisfactory with good alignment and fixation of the components. He progressed rapidly with physical therapy and was able to mobilize using a walker. At the time of discharge he still has not regained good quadriceps control and was advised to mobilize with the knee immobilizer until he fully regains quadriceps control and is able to actively straight leg raise. His pain is well controlled with as needed oral Percocet. The dressings were reduced on the second postoperative day and the wound is healthy and healing well. He has developed couple of skin blisters lateral to the medial part of the surgical incision; 1 of them has burst leaking small amount of serous fluid. No signs of any erythema, induration or discharge. Patient was started on Xarelto 10 mg daily for DVT prophylaxis after surgery. His neurovascular status in both lower extremities is intact. Pedal pulses 1+ bilaterally and fully sensate distally. No clinical evidence of DVT noted. Patient was cleared for discharge by physical therapy as well as Dr. Sow. On the day of discharge, the patient has been stable. Patient's vital signs have been stable throughout and he is afebrile at the time of discharge. He is being discharged home with self-care and outpatient physical therapy. During his admission to the hospital he was also seen by Dr. Sow and Dr. Ferrara for management of medical problems. On the day of discharge Dr. Sow cleared him for discharge from a medical standpoint. Condition at discharge: improved and stable. Treatments and Procedures: Total knee arthroplasty, LEFT knee; date of surgery 07/27/2018. Objective Vital signs: Temp Pulse Resp BP Pulse Ox 100.0 F H 81 17 150/68 H 96 07/29/18 15:56 07/29/18 15:56 07/29/18 15:56 07/29/18 15:56 07/29/18 15:56 no acute distress, obese - *Routine HEENT Exam Head: Present: normocephalic, atraumatic Eye: Present: EOMI ENT: Present: mucous membranes moist - *Routine Neck Exam Present: supple, full ROM, trachea midline - *Routine Respiratory Exam Present: CTA bilaterally - *Routine Cardiovascular Exam Present: RRR, Normal S1, Normal S2 - *Routine Abdominal Exam Present: soft, normoactive bowel sounds - *Routine Extremities Exam Comments: On examination of the left knee, [place] dressing is in place and is clean, dry and intact. The dressing was changed and the incision is healthy. There are couple of blisters lateral to the mid part of the incision; 1 of the blisters has burst and discharging small amount of serous fluid. These are cleaned and sterile dressing applied. There is diffuse swelling and some tenderness over the knee joint as to be expected at this stage. Knee range of motion is 5-70 of flexion. Distal pulses are 1+. Capillary refill is brisk. Sensation is intact to light touch throughout. Thigh and calf are soft and there is mild tenderness over the distal thigh. There is also 1+ edema of the left leg, ankle and foot. Patient demonstrates good range of foot and ankle movements. The quadriceps tendon is actively [place]. Patient is barely able to actively straight leg raise and has not regained full quadriceps control. - *Routine Skin Exam Present: warm, normal turgor - *Routine Neurological Exam Present: alert, oriented X3, CN II-XII intact, normal tone - Routine Psychiatric Exam Present: normal affect, cooperative Results Labs on day of discharge: Labs from last 24 hours 07/29/18 08:34 POC Glucose 228 H DS: Diagnosis - Discharge Diagnosis (1) Primary osteoarthritis of left knee Status: Chronic (2) History of total knee arthroplasty Status: Acute (3) Hypertension, essential Status: Acute Discharge Plan - Patient Discharge Instructions ACTIVITY: Continue current activity, Ambulate as tolerated, No heavy lifting DIET: advance to your usual diet Patient Instructions: Knee Replacement, High Blood Pressure, DI for Knee Replacement, DI for Surgical Site Infection, Surgical Site Infection - Follow up Plan Follow up with: Amos Grullon MD [Staff Physician] - 2 weeks Disposition: Home, Self-[facility]ci Medications: Home Medications Medication Instructions Recorded Confirmed Type levothyroxine 50 mcg capsule 50 mcg PO DAILY 03/26/17 07/27/18 History metformin 1,000 mg tablet 500 mg PO BID 03/26/17 07/27/18 History insulin degludec (U-100) 100 50 units SQ DAILY 06/02/18 07/28/18 History unit/mL (3 mL) subcutaneous pen liraglutide 0.6 mg/0.1 mL (18 mg/3 1.2 mg SQ DAILY 06/02/18 07/28/18 History mL) subcutaneous pen injector losartan 100 mg tablet 100 mg PO DAILY 06/02/18 07/27/18 History Rosuvastatin Calcium 20 mg PO HS 07/27/18 07/27/18 History Tamsulosin HCl 0.4 mg PO DAILY 07/28/18 07/28/18 History Testosterone Cypionate 200 mg IM DIRECTED 07/28/18 07/28/18 History Ferrous Sulfate [Ferrous Sulfate 325 mg PO BID #120 tab 07/29/18 Rx 325mg Tablet] Oxycodone HCl/Acetaminophen 1 each PO Q6HP PRN #30 tab 07/29/18 Rx [Percocet 5/325mg tablet] Rivaroxaban [Xarelto 10mg tablet] 10 mg PO QPMWM #14 tab 07/29/18 Rx Sennosides [Senokot 8.6mg tablet] 8.6 mg PO BIDP PRN #20 tab 07/29/18 Rx Prescriptions/Medication Reconciliation: New Sennosides [Senokot 8.6mg tablet] 8.6 mg PO BIDP PRN #20 tab PRN Reason: Constipation Rivaroxaban [Xarelto 10mg tablet] 10 mg PO QPMWM #14 tab Oxycodone HCl/Acetaminophen [Percocet 5/325mg tablet] 1 each PO Q6HP PRN #30 tab PRN Reason: Breakthru Moderate Pain Ferrous Sulfate [Ferrous Sulfate 325mg Tablet] 325 mg PO BID #120 tab Continued liraglutide 0.6 mg/0.1 mL (18 mg/3 mL) subcutaneous pen injector 1.2 mg SQ DAILY metformin 1,000 mg tablet 500 mg PO BID levothyroxine 50 mcg capsule 50 mcg PO DAILY insulin degludec (U-100) 100 unit/mL (3 mL) subcutaneous pen 50 units SQ DAILY losartan 100 mg tablet 100 mg PO DAILY Testosterone Cypionate 200 mg IM DIRECTED Tamsulosin HCl 0.4 mg PO DAILY Rosuvastatin Calcium 20 mg PO HS Discontinued Chlorhexidine Gluconate 1 each TP ONCE Mupirocin [Bactroban 2% Ointment 22gm tube] 1 applicatio NOSTRIL-B DIRECTED - Additional Information Additional Information: Our recommendations on discharge include physical therapy with weightbearing as tolerated and range of motion exercises of the left knee with emphasis on full extension and regaining flexion gradually. Patient has decided to have outpatient physical therapy. Note is made that the patient easily extends the knee to 0 degrees and flexes to 120 degrees while he was under anesthesia for the total knee arthroplasty with the wound closed. I have strongly advised him not to place any pillow behind the knee. But he can place a pillow under the ankle thus allowing gravity/weight of the leg help the knee into full extension. Patient was also advised to keep the leg elevated and ice the knee/use Polar pack on a regular basis. At this stage it is permissible to take a shower and allow the incision to get wet with shower water. After padding the area dry, the wound can be left open. Patient will follow up with me in the office in approximately 12-14 days for wound check and to cut the suture ends. Recommend 10 mg of Xarelto p.o. daily for 14 days for DVT prophylaxis. Please feel free to call our office at [phone] or via the hospital tube former operator [phone] for any orthopaedic questions or concerns.
== END 2018-07-29 20:30 | disposition home or self-care (01) | DRG 470 ==
LOC: OR 06:05 → 2ND 13:38
PROVIDERS: ADMIT Orthopaedic Surgery; ATTEND Orthopaedic Surgery
CPT/HCPCS: 36415; 73560; 80048; 81001; 82962; 85025; 86850; 87070; 87205; 96374; 97110; 97116; 97161; 97165; 97535; C1713; J2405; J2704

== ENCOUNTER → 2018-09-03 08:43 | Outpatient (CLI) | payer OTHER, SELFPAY ==
[2018-09-08 19:52] LABS: Testosterone, Total, LC/MS 323.6 ng/dL (264.0-916.0); Testosterone,Free 11.9 pg/mL (7.2-24.0)
== END ==
PROVIDERS: Visit Provider Urology
DX: E29.1 Testicular hypofunction (principal)
CPT/HCPCS: 36415; 84402; 84403

== ENCOUNTER → 2018-09-10 10:54 | Outpatient (CLI) | payer OTHER, SELFPAY ==
--- NOTE | 2018-09-10 10:57 | XR_ITS ---
XR knee LT 2V HISTORY: Follow-up total knee replacement ITS.REASON: sp LT total knee arthroplasty ORDERING PHYSICIAN: Amos Grullon MD PATIENT AGE: 57 years COMPARISON: 07/27/2018 FINDINGS Status post total knee replacement. There is good alignment with no obvious orthopedic complication. There is some increased density in the suprapatellar region which may be due to underlying effusion. IMPRESSION: Good alignment status post total knee replacement
== END ==
PROVIDERS: PCP Internal Medicine Adolescent Medicine; Visit Provider Orthopaedic Surgery
DX: Z96.652 Presence of left artificial knee joint (principal)
CPT/HCPCS: 73560

== ENCOUNTER 2018-09-17 10:30 | Outpatient (RCR) | payer OTHER, SELFPAY ==
--- NOTE | 2018-09-03 11:01 | [facility].RHREAS ---
Rehab Reassessment Rehab OP Re-assessment Start: 09/03/18 09:07 Freq: Status: Active Protocol: Document 09/03/18 09:07 KACY (Rec: 09/03/18 11:01 KACY [id number]) Electronically Signed By Owen Hoover, PT 09/03/18 09:07 Rehab Re-assessment Subjective Subjective Pt reports 70% improvement to date. Objective Objective Notes AROM: -5-112; AAROM 0-114; PROM 0-130 MMT: L knee flx 5/5; ext 4+/5; hip flx 4+/5; hip abd 4+/5; hip add 4+/5; IR/ER 4/5 Neuro WNL Pain: 4/10 at worst over past week Special tests negative. Assessment Progress Assessment Progressing as Expected Assessment Notes Pt is tolerating progression of Rx very well. Noted ROM improvements included above. Pt continues to experience some difficulty with prolonged standing/ambulatory activities that contribute to functional limitations with occupational, household and recreational activities. Patient goals met STG's Goals Not Met LTG's Revised Goals NA Plan Plan Continue with POC. Pt to return to MD for follow-up next week. Frequency of Therapy 2x/week Duration of therapy 3 weeks. Time and Billing Re-Eval Time 15 Re-Eval Billing Units 1 PHYSICIAN CERTIFICATION: I certify the specified therapy services for Gerardo Nicolas are required, authorized, and reviewed every 30 days.
== END 2018-09-17 10:35 | disposition home or self-care (01) ==
LOC: PT 10:30
PROVIDERS: Visit Provider Orthopaedic Surgery
DX: M17.12 Unilateral primary osteoarthritis, left knee (principal); M25.562 Pain in left knee; G89.29 Other chronic pain
CPT/HCPCS: 97010; 97014; 97110; 97140; 97163; 97164; G0283

== ENCOUNTER → 2019-01-20 09:50 | Outpatient (CLI) | payer OTHER, SELFPAY ==
--- NOTE | 2019-01-20 09:53 | XR_ITS ---
PROCEDURE: XR KNEE LT 2V CLINICAL INDICATION: sp LT TKA Follow-up total knee replacement COMPARISON: [id number] KNEE-4 OR 5 VIEWS-RT from 01/22/2017 [id number] KNEE-LIMITED 2 VIEWS-RT from 03/18/2017 [id number] XR knee LT 4V from 04/30/2017 [id number] XR knee LT 4V from 05/22/2018 FINDINGS: Status post total knee replacement with good alignment. No fracture or dislocation. No evidence of orthopedic complication. No lytic or blastic change. Other findings:None. IMPRESSION: Status post total knee replacement with good alignment and no acute finding Dictated by: Prosper Howard MD 01/20/2019 11:40 Electronically signed by Prosper Howard MD in [place] 01/20/2019 11:40
--- NOTE | 2019-01-20 09:53 | XR_ITS ---
PROCEDURE: XR KNEE RT 4V CLINICAL INDICATION: right knee pain COMPARISON: [id number] KNEE-4 OR 5 VIEWS-RT from 01/22/2017 [id number] KNEE-LIMITED 2 VIEWS-RT from 03/18/2017 [id number] XR knee LT 4V from 04/30/2017 [id number] XR knee LT 4V from 05/22/2018 FINDINGS: Severe osteoarthritic changes are present involving the medial compartment with loss of joint space medially and osteophyte formation. Sclerosis is present involving the medial femoral condyle and medial tibial with some scattered lucencies in the proximal tibia medially consistent with prior subchondroplasty. There are mild osteoarthritic changes of the lateral compartment and moderate osteoarthritic changes of the patellofemoral joint. There is mild varus angulation of the tibia. IMPRESSION: Severe osteoarthritic changes of the right knee at the medial compartment which appears slightly worse. Prior sub chondroplasty medially Dictated by: Prosper Howard MD 01/20/2019 11:43 Electronically signed by Prosper Howard MD in [place] 01/20/2019 11:43
== END ==
PROVIDERS: PCP Internal Medicine Adolescent Medicine; Visit Provider Orthopaedic Surgery
DX: M17.11 Unilateral primary osteoarthritis, right knee (principal); Z96.652 Presence of left artificial knee joint
CPT/HCPCS: 73560; 73564

== ENCOUNTER → 2019-07-06 09:15 | Outpatient (CLI) | payer OTHER, SELFPAY ==
--- NOTE | 2019-07-06 11:22 | US_ITS ---
PROCEDURE: US BREAST RT COMPLETE CLINICAL INDICATION: RT BREAST LUMP COMPARISON: No exams were available for comparison FINDINGS: No sonographic abnormality is evident in the area palpable concern at the 12 o'clock region. The remaining breast also has an unremarkable appearance. IMPRESSION: Unremarkable right breast ultrasound. Suggest mammography for further evaluation. Dictated by: Prosper Howard MD 07/14/2019 17:19 Electronically signed by Prosper Howard MD in [place] 07/14/2019 17:19
== END ==
PROVIDERS: PCP Internal Medicine Adolescent Medicine; Visit Provider Nurse Practitioner Family
DX: N63.11 Unspecified lump in the right breast, upper outer quadrant (principal)
CPT/HCPCS: 76641

== ENCOUNTER → 2019-07-21 09:32 | Outpatient (CLI) | payer OTHER, SELFPAY ==
--- NOTE | 2019-07-21 09:35 | MM_ITS ---
0 PROCEDURE: MM DIG MAMM BI DX W/CAD Digital Breast Tomosynthesis CLINICAL INDICATION: BREAST LUMP COMPARISON: US BREAST RT COMPLETE from 07/06/2019 TECHNIQUE: Standard CC and MLO images and 3D Tomosynthesis was obtained. R2 CAD reviewed. FINDINGS: Average fibroglandular tissue. No malignant appearing mass or malignant-appearing microcalcification. No discrete mass evident in the area of palpable concern. IMPRESSION: BI-RAD Category: 1 Negative FOLLOW-UP: Follow-up suggested as clinically warranted. If there is indeed a palpable nodule then, it should be managed on a clinical basis. (A letter has been sent to the patient regarding results of the study.) Dictated by: Prosper Howard MD 07/21/2019 10:33 Electronically signed by Prosper Howard MD in [place] 07/21/2019 10:33
== END ==
PROVIDERS: PCP Internal Medicine Adolescent Medicine; Visit Provider Internal Medicine Adolescent Medicine
DX: N63.11 Unspecified lump in the right breast, upper outer quadrant (principal)
CPT/HCPCS: 77062; 77066; G0279

== ENCOUNTER → 2019-10-11 12:56 | Outpatient (CLI) | payer OTHER, SELFPAY ==
--- NOTE | 2019-10-11 13:28 | XR_ITS ---
PROCEDURE: XR CHEST AP CLINICAL HISTORY: COVID TESTING..COUGH..SOB COMPARISON: CXR CHEST(2 VIEWS-NOT PORTABLE) from 01/11/2014 CXR CHEST(2 VIEWS-NOT PORTABLE) from 03/03/2017 FINDINGS: The cardiomediastinal silhouette and pulmonary vascularity are within normal limits. There is opacity noted in the left lung base which may only be related to prominent pericardial fat pad having a somewhat similar appearance on 01/11/2014 however more prominent on today but may be due to the portable technique with somewhat apical lordotic positioning. Upright PA and lateral chest may confirm. The remaining lungs are clear. There is a bone plate along the lower cervical spine No acute bony abnormalities. IMPRESSION: Prominent pericardial fat pad on the left versus an area infiltrate Dictated by: Prosper Howard MD 10/11/2019 14:47 Electronically signed by Prosper Howard MD in [place] 10/11/2019 14:47
== END ==
PROVIDERS: PCP Internal Medicine Adolescent Medicine; Visit Provider Internal Medicine Adolescent Medicine
DX: Z20.828 Contact with and (suspected) exposure to other viral communicable diseases (principal)
CPT/HCPCS: 71045

== ENCOUNTER → 2019-10-22 10:33 | Outpatient (CLI) | payer OTHER, SELFPAY ==
[2019-10-24 16:36] LABS: Covid-19 Nasal PCR Sendout UK Detected
== END ==
PROVIDERS: Nurse Practitioner Family; Visit Provider Internal Medicine Adolescent Medicine
DX: U07.1 COVID-19 (principal)
CPT/HCPCS: 36415; U0003

== ENCOUNTER → 2019-10-29 13:37 | Outpatient (CLI) | payer OTHER, SELFPAY ==
[2019-10-31 12:13] LABS: Covid-19 Nasal PCR Sendout UK Detected
== END ==
PROVIDERS: Visit Provider Nurse Practitioner Family
DX: U07.1 COVID-19 (principal)
CPT/HCPCS: U0003

== ENCOUNTER → 2019-11-20 08:19 | Outpatient (CLI) | payer OTHER, SELFPAY ==
[2019-11-20 11:46] LABS: Coronavirus 19 IgG Antibody Positive (Negative)
[2019-11-20 11:47] LABS: Coronavirus 19 IgM Antibody Negative (Negative)
== END ==
PROVIDERS: Visit Provider Internal Medicine Gastroenterology
DX: Z01.818 Encounter for other preprocedural examination (principal); Z12.11 Encounter for screening for malignant neoplasm of colon
CPT/HCPCS: 36415; 86328

== ENCOUNTER 2019-11-22 09:35 | Day surgery (SDC) | payer OTHER, SELFPAY ==
[2019-11-16 15:38] VITALS: BMI 40.1
[2019-11-22 10:14] VITALS: BP 161/81; PULSE 88; RESP 16; TEMP 36.8; O2SAT 96
[2019-11-22 10:30] LABS: POC Glucose,Bedside 196 (70-110)
--- NOTE | 2019-11-22 11:24 | HMH.ANESCL ---
[facility] Anesthesia Checklist - Patient Identification Patient Identification: Arm Band - Structural Data Admitted From: Home Planned Operative Procedure/s: colonoscopy Consent for Planned Operative Procedure(s) Verified: Yes Verified Documents: Surgical Consent, History and Physical - NPO Status Verified Time NPO: 00:00 - Additional verifications Anesthesia Reactions: No Hx Blood Transfusions: No Blood Transfusion Reaction: No - Airway Assessment C-Spine Mobility Assessed: Yes (mp2) TMJ Mobility Assessed: Yes Dentition: Good Dentition - Neurological Assessment Level of Consciousness: Awake, Alert - Anesthesia Plan Anesthesia Risk discussed: Yes Anesthesia Plan: Verified ASA Class: III Anesthesia Type: MAC [facility] History I have reviewed the patient's past medical history: Yes Medical History: Reports:: BPH, Cancer, Chronic Obstructive Pulmonary Disease (COPD), Diabetes Mellitus Type 2, Hyperlipidemia, Hypertension, Kidney Stones Denies:: Diabetes Mellitus Type 1, Internal Pacemaker, MRSA, Seizures *Have you ever received a pneumonia vaccine?: Yes *Have you received a flu vaccine this season?: Yes Other Medical History: Reports: Arthritis, Hypothyroidism, Other. Denies: Blood Transfusion Reaction Anesthesia experience/problems:: nac Laterality Cases: Left: Total Knee Replacement, Right: Arthroscopy Knee, Bilateral: Carpal Tunnel Release Other Surgeries: Yes: Colonoscopy, Other. No: Pacemaker Amputation: No Fractures: No - *Social History Last grade of school completed: GED Smoking Status: Never smoker Tobacco Type: cigarettes # Packs/Day (cigarettes): 1 #Yrs smoked (if former smoker): 40 Alcohol Intake: never Substance Use Type: denies use *Occupational Status:: employed Housing: house Household Members: spouse *Travel in the last 8 weeks: None Family Hx:: Heart Attack, Diabetes
[2019-11-22 11:28] VITALS: O2SAT 97
--- NOTE | 2019-11-22 12:07 | HMH.PROC ---
[facility] Procedure Note Procedure Note:: Colonoscopy Procedure Report: Colonoscopy with cold snare polypectomy Endoscopist: Eddi Fishman II, MD Referring physician: Bonnie VALERIO Date of Procedure: November 22, 2019 Equipment: Olympus 180 variable stiffness pediatric colonoscope Sedation: MAC sedation Indication: Mr. Nicolas is a 58-year-old gentleman who is here for diagnostic colonoscopy. He has had loose bowel movements and diarrhea for approximately 1 year. He also reports some crampy abdominal discomfort that often precedes the diarrhea and is primarily in the lower abdomen. He does get some gas and bloating. He reports no rectal bleeding, weight loss or family history of colon cancer. He reports no family history of colitis or Crohn's disease. He does note some occasional mucus with his bowel movements. He did have several larger colonic polyps at the time of his last colonoscopy ([address] Baljeet Redd M.D.) and was told to return in 6 months for repeat surveillance. Procedure: Prior to the procedure, a history and physical exam was performed, and patient's medications and allergies were reviewed. The risks, benefits and alternatives of the sedation and procedure were discussed with the patient. All questions were answered and informed consent was obtained. The patient was brought to the procedure room. Patient identification and proposed procedure were verified by the physician and the nurse. The patient was placed in a left lateral decubitus position and the scope was passed under direct vision. Throughout the procedure, the patient's blood pressure, pulse, and oxygen saturations were monitored continuously. The colonoscopy was accomplished without difficulty. The patient tolerated the procedure well. Findings: On digital rectal examination there was normal rectal tone. There were no external hemorrhoids. The colonoscope was introduced through the anal canal to the rectum and advanced to the cecum. The ileocecal valve and appendiceal orifice were identified. The scope was advanced a short distance into the ileum which appeared grossly normal. The scope was then withdrawn into the colon. The patient did have multiple colonic polyps that ranged in size from 3 to 14 mm (cecum x2 (3 and 4 mm), ascending x4 (3, 4, 6 and 8 mm), transverse x8 (3, 3, 4, 4, 4, 6, 7 and 8 mm), descending x1 (14 mm), sigmoid x1 (5 mm) and rectosigmoid x1 (4 mm)) and all of these were removed via cold snare polypectomy. There were scattered diverticuli throughout the descending and sigmoid colon (LEFT colon). The rectum itself was normal. Upon retroflexion within the rectum there were grade 1-2 internal hemorrhoids. The preparation was excellent throughout with [place] Preparation Score of 9. The cecal time was 21 minutes. Impression: 1. Colonic polyps x17 2. Left-sided diverticulosis 3. Grade 1-2 internal hemorrhoids Plan: I will follow up the polyp pathology and recommend repeat colonoscopy again in 6 to 12 months based upon the polyp histology. I do feel that the patient has some spastic diverticular disease and I would encourage dietary measures, probiotic and bulk fiber supplementation on a long-term daily maintenance basis.
[2019-11-22 12:10] VITALS: BP 142/89; PULSE 102; RESP 14; TEMP 36.2; O2SAT 94
[2019-11-22 12:20] VITALS: BP 148/91; PULSE 89; RESP 16; O2SAT 97
[2019-11-22 12:31] VITALS: BP 158/80; PULSE 96; RESP 18; O2SAT 96
[2019-11-22 12:48] VITALS: BP 150/90; PULSE 89; RESP 18; O2SAT 96
== END 2019-11-22 12:54 | disposition home or self-care (01) ==
LOC: OUTP 09:36
PROVIDERS: PCP Internal Medicine Adolescent Medicine; Visit Provider Internal Medicine Gastroenterology
PROC: 0DJD8ZZ Inspection of Lower Intestinal Tract, Via Natural or Artificial Opening Endoscopic (ICD-10-PCS; CPT 45378; principal; 2019-11-22 11:30)
DX: Z86.010 Personal history of colon polyps (principal); K63.5 Polyp of colon; K57.30 Diverticulosis of large intestine without perforation or abscess without bleeding; K64.0 First degree hemorrhoids; N40.0 Benign prostatic hyperplasia without lower urinary tract symptoms; J44.9 Chronic obstructive pulmonary disease, unspecified; E11.9 Type 2 diabetes mellitus without complications; E78.5 Hyperlipidemia, unspecified; M19.90 Unspecified osteoarthritis, unspecified site; E03.9 Hypothyroidism, unspecified; Z79.4 Long term (current) use of insulin; Z79.899 Other long term (current) drug therapy
CPT/HCPCS: 45385; 82962

== ENCOUNTER → 2020-09-26 21:47 | Outpatient (CLI) | payer OTHER, SELFPAY ==
[2020-09-26 22:21] LABS: Basophils # 0.1 K/mm3 (0-0.2); Basophils % 0.8 % (0.1-2.0); Eosinophils # 0.4 K/mm3 (0.0-0.4); Eosinophils % 4.5 % (0.1-12.0); Hematocrit 45.8 % (42.0-52.0); Hemoglobin 15.5 g/dL (14.1-18.0); Lymphocytes # 2.6 K/mm3 (0.7-4.5); Lymphocytes % 26.7 % (10-50); Mean Corpuscular HGB Conc 33.8 g/dL (31.8-35.4); Mean Corpuscular Hemoglobin 30.6 pg (27.0-31.2); Mean Corpuscular Volume 90.7 fl (80-94); Mean Platelet Volume 9.2 fl (7.4-10.4); Monocytes # 0.7 K/mm3 (0.1-1.0); Monocytes % 6.9 % (1.7-9.3); Neutrophils # 5.9 K/mm3 (1.8-7.8); Neutrophils % 61.2 % (37.0-80.0); Platelet Count 204 K/mm3 (142-424); Red Blood Count 5.06 M/mm3 (4.60-6.20); White Blood Count 9.6 K/mm3 (4.8-10.8)
[2020-09-26 22:43] LABS: Alanine Aminotransferase 31 U/L (12-78); Albumin Level 4.3 g/dl (3.5-5.0); Albumin/Globulin Ratio 1.4 (1.1-1.8); Alkaline Phosphatase 91 U/L (38-126); Anion Gap 16.3 mEq/L (5-15); Aspartate Amino Transferase 28 U/L (17-59); Bilirubin,Total 0.7 mg/dl (0.2-1.3); Blood Urea Nitrogen 14 mg/dl (9-20); Calcium 9.1 mg/dl (8.4-10.2); Carbon Dioxide 26 mmol/L (22.0-30.0); Chloride 98 mmol/L (98-107); Chol/HDL Ratio 4.3 (1-3.5); Cholesterol 124 mg/dl (140-200); Estimated Glomerular Filt Rate 98 ml/min (>60); GFR (African American) 119 ML/MIN (>60); Glucose 261 mg/dl (74-100); HDL Cholesterol 29 mg/dl (40-60); Potassium 4.3 mmoL/L (3.5-5.1); Sodium 136 mmol/L (136-145); Total Protein,Serum 7.3 g/dl (6.3-8.2); Triglycerides 416 mg/dl (30-150)
[2020-09-26 22:55] LABS: Direct LDL Cholesterol 54.56 mg/dL (100-129)
[2020-09-26 23:12] LABS: Thyroid Stimulating Hormone 3.79 uIU/mL (0.465-4.68)
[2020-09-27 07:50] LABS: Hemoglobin A1C 9.5 % (4.0-6.0)
== END ==
PROVIDERS: Visit Provider Internal Medicine Adolescent Medicine
DX: E11.42 Type 2 diabetes mellitus with diabetic polyneuropathy (principal); E03.9 Hypothyroidism, unspecified; E78.5 Hyperlipidemia, unspecified; Z79.4 Long term (current) use of insulin
CPT/HCPCS: 80053; 80061; 83036; 84443; 85025

== ENCOUNTER → 2020-10-05 07:30 | Outpatient (CLI) | payer OTHER, SELFPAY ==
--- NOTE | 2020-10-05 07:33 | CT_ITS ---
PROCEDURE: CT CHEST WO CON CLINICAL INDICATION: H/O NICOTINE DEPENDENCE Chest pain and cough, history of Covid19 pneumonia COMPARISON: CT ABDPELW/O CT ABD PELVIS W/O CONTRAST from 10/14/2014 CR XR CHEST AP from 10/11/2019 TECHNIQUE: Axial images obtained with sagittal and coronal reformats. All CT scans at the facility use one or more dose reduction, viz: automated exposure control, ma/kV adjustment per patient size (including targeted exams where dose is matched to indication, i.e. head), or iterative reconstruction technique. FINDINGS: HEART AND MEDIASTINAL STRUCTURES: There are scattered small mediastinal lymph nodes which contain calcification. Coronary artery calcifications are present. LUNGS AND PLEURAL SPACES: COPD with centrilobular emphysema and scattered areas of scarring with evidence of old granulomatous disease. Minimal nodularity is present in the peripheral aspect of the right upper lobe posteriorly and could be due to scarring. There is a semi solid nodular opacity in the left upper lobe image 39 at 5 mm nonspecific. No effusions or infiltrates. BONY STRUCTURES: Degenerative changes thoracic spine with endplate osteophytes. There is mild wedging of L1 anteriorly unchanged from 10/14/2014. UPPER ABDOMEN: Fatty liver. Cholelithiasis. 4 mm left upper renal calculus. Gynecomastia. ADDITIONAL FINDINGS: No other significant abnormalities. IMPRESSION: Centrilobular emphysema with COPD changes. Nonspecific nodularity right upper lobe posteriorly which could be post inflammatory. 5 mm semi solid nodule left upper lobe. These findings are nonspecific. Six-month follow-up suggested to confirm stability. Cholelithiasis and left nephrolithiasis. Dictated by: Prosper Howard MD 10/05/2020 15:09 Prosper Howard MD in [place] 10/05/2020 15:09
--- NOTE | 2020-10-05 07:34 | US_ITS ---
PROCEDURE: US ABD. AORTA SCREENING CLINICAL INDICATION: PERSONAL H/O NICOTINE DEPENDENCE COMPARISON: CT ABDPELW/O CT ABD PELVIS W/O CONTRAST from 10/14/2014 FINDINGS: Study is somewhat limited secondary to patient's body habitus and overlying bowel gas. No obvious aneurysm detected. CT would be of more thorough evaluation if clinically desired. IMPRESSION: No definite aneurysm Dictated by: Prosper Howard MD 10/05/2020 12:41 Prosper Howard MD in [place] 10/05/2020 12:41
== END ==
PROVIDERS: PCP Internal Medicine Adolescent Medicine; Visit Provider Internal Medicine Adolescent Medicine
DX: Z87.891 Personal history of nicotine dependence (principal); Z13.6 Encounter for screening for cardiovascular disorders; R05 Cough
CPT/HCPCS: 71250; 76705

== ENCOUNTER → 2020-11-21 08:00 | Outpatient (CLI) | payer OTHER, SELFPAY ==
[2020-11-22 09:30] LABS: Chloride 102 mmol/L (98-107); Potassium 4.7 mmoL/L (3.5-5.1); Sodium 141 mmol/L (136-145)
[2020-11-22 09:32] LABS: Blood Urea Nitrogen 25 mg/dl (9-20); Estimated Glomerular Filt Rate 86 ml/min (>60); GFR (African American) 104 ML/MIN (>60)
[2020-11-22 09:33] LABS: Alanine Aminotransferase 30 U/L (12-78); Albumin Level 4.7 g/dl (3.5-5.0); Albumin/Globulin Ratio 1.4 (1.1-1.8); Alkaline Phosphatase 91 U/L (38-126); Anion Gap 18.7 mEq/L (5-15); Aspartate Amino Transferase 31 U/L (17-59); Carbon Dioxide 25 mmol/L (22.0-30.0); Globulin 3.3 g/dL (1.3-3.2); Glucose 192 mg/dl (74-100)
[2020-11-22 10:00] LABS: Hemoglobin A1C 9.2 % (4.0-6.0)
== END ==
PROVIDERS: Visit Provider Internal Medicine Adolescent Medicine
DX: E11.9 Type 2 diabetes mellitus without complications (principal); Z79.4 Long term (current) use of insulin
CPT/HCPCS: 80053; 83036

== ENCOUNTER → 2020-11-24 15:23 | Outpatient (CLI) | payer OTHER, SELFPAY | PROVIDERS: Visit Provider Internal Medicine Gastroenterology | DX: Z01.812 Encounter for preprocedural laboratory examination (principal); Z20.822 Contact with and (suspected) exposure to COVID-19; Z12.11 Encounter for screening for malignant neoplasm of colon | CPT/HCPCS: U0003 ==

== ENCOUNTER 2020-11-27 06:48 | Day surgery (SDC) | payer OTHER, SELFPAY ==
[2020-11-22 10:31] VITALS: BMI 39.0
[2020-11-27 07:17] VITALS: BP 161/84; PULSE 101; RESP 18; TEMP 37.1; O2SAT 94
[2020-11-27 07:22] LABS: POC Glucose,Bedside 226 (70-110)
--- NOTE | 2020-11-27 07:57 | HMH.ANESCL ---
[facility] Anesthesia Checklist - Patient Identification Patient Identification: Arm Band, Verbal (Name & ) - Structural Data Admitted From: Home Planned Operative Procedure/s: colon Consent for Planned Operative Procedure(s) Verified: Yes - NPO Status Verified Time NPO: 00:00 - Additional verifications Patient : No Anesthesia Reactions: No Hx Blood Transfusions: No Blood Transfusion Reaction: No Cephalosporin Allergy: No Previous Colonoscopy: Yes - Cardiovascular Assessment Heart Sounds: S1 & S2 Pulse Strength: Baseline Pulse Rhythm: Regular Peripheral Edema: No - Airway Assessment C-Spine Mobility Assessed: Yes TMJ Mobility Assessed: Yes Dentition: Good Dentition - Neurological Assessment Level of Consciousness: Awake, Alert, Appropriate - Anesthesia Plan Anesthesia Risk discussed: Yes ASA Class: III Anesthesia Type: MAC [facility] History I have reviewed the patient's past medical history: Yes Medical History: Reports:: BPH, Chronic Obstructive Pulmonary Disease (COPD), Diabetes Mellitus Type 2, Hyperlipidemia, Hypertension, Kidney Stones Denies:: Cancer, Diabetes Mellitus Type 1, Internal Pacemaker, MRSA, Seizures *Have you ever received a pneumonia vaccine?: Yes *Have you received a flu vaccine this season?: Yes Other Medical History: Reports: Arthritis, Hypothyroidism, Other. Denies: Blood Transfusion Reaction Anesthesia experience/problems:: none Laterality Cases: Right: Arthroscopy Knee, Bilateral: Carpal Tunnel Release Other Surgeries: Yes: Colonoscopy, Other. No: Pacemaker Amputation: No Fractures: No - *Social History Smoking Status: Never smoker Tobacco Type: cigarettes # Packs/Day (cigarettes): 1 #Yrs smoked (if former smoker): 40 Alcohol Intake: never Substance Use Type: denies use *Occupational Status:: employed Housing: house Household Members: family *Travel in the last 8 weeks: None Family Hx:: No significant family history
[2020-11-27 08:02] VITALS: O2SAT 98
--- NOTE | 2020-11-27 08:02 | HMH.PROC ---
[facility] Procedure Note Procedure Note:: Colonoscopy Procedure Report: Colonoscopy with cold snare polypectomy Endoscopist: Eddi Fishman II, MD Referring physician: Bonnie VALERIO Date of Procedure: November 27, 2020 Equipment: Olympus 190 variable stiffness pediatric colonoscope Sedation: MAC sedation Indication: Mr. Nicolas is a 59-year-old gentleman who is here for follow-up screening/surveillance colonoscopy secondary to a personal history of colon polyps and does have a history of multiple adenomatous colon polyps. He did have a colonoscopy with vt on November 22, 2019 and had 17 colon polyps (tubular adenomas x17) which were removed. He reports no abdominal pain, weight loss, change in his bowel habits or rectal bleeding. The patient should not tolerate Konsyl. He reports no family history of colon cancer. He did have a colonoscopy in 2013 (Dr. Baljeet Redd M.D.) and had multiple polyps removed as well. Procedure: Prior to the procedure, a history and physical exam was performed, and patient's medications and allergies were reviewed. The risks, benefits and alternatives of the sedation and procedure were discussed with the patient. All questions were answered and informed consent was obtained. The patient was brought to the procedure room. Patient identification and proposed procedure were verified by the physician and the nurse. The patient was placed in a left lateral decubitus position and the scope was passed under direct vision. Throughout the procedure, the patient's blood pressure, pulse, and oxygen saturations were monitored continuously. The colonoscopy was accomplished without difficulty. The patient tolerated the procedure well. Findings: On digital rectal examination there was normal rectal tone. There were no external hemorrhoids. The prostate was mildly firm but symmetric without nodules. The colonoscope was introduced through the anal canal to the rectum and advanced to the cecum. The ileocecal valve and appendiceal orifice were identified. The scope was advanced a short distance into the ileum which appeared grossly normal. The scope was then withdrawn into the colon. The cecum, ascending and transverse colon and mucosa were grossly normal. There were 4 colon polyps (descending x2 (3 and 12 mm) and sigmoid x2 (4 and 10 mm)) which were all removed via cold snare polypectomy. There were scattered diverticuli throughout the descending and sigmoid colon (LEFT colon). The rectum itself was normal. Upon retroflexion within the rectum there were grade 1-2 internal hemorrhoids. The preparation was excellent throughout with [place] Preparation Score of 9. The cecal time was 14 minutes. Impression: 1. Colonic polyps x4 2. Left-sided diverticulosis 3. Grade 1-2 internal hemorrhoids Plan: I will follow up the polyp pathology and recommend repeat colonoscopy again in 3 years based upon the adenomatous polyp histology and prior history of multiple adenomatous polyps. More than 20 adenomatous polyps lifetime usually infers possible genetic colorectal cancer syndrome. I would encourage bulking fiber supplementation on a long-term daily maintenance basis.
[2020-11-27 08:37] VITALS: BP 159/85; PULSE 110; RESP 16; TEMP 36.2; O2SAT 93
[2020-11-27 08:47] VITALS: BP 154/81; PULSE 97; RESP 16; O2SAT 95
[2020-11-27 08:57] VITALS: BP 146/84; PULSE 93; RESP 16; O2SAT 95
[2020-11-27 09:07] VITALS: BP 154/77; PULSE 100; RESP 16; TEMP 36.2; O2SAT 94
== END 2020-11-27 09:07 | disposition home or self-care (01) ==
LOC: OUTP 06:50
PROVIDERS: PCP Internal Medicine Adolescent Medicine; Visit Provider Internal Medicine Gastroenterology
PROC: 0DJD8ZZ Inspection of Lower Intestinal Tract, Via Natural or Artificial Opening Endoscopic (ICD-10-PCS; CPT 45378; principal; 2020-11-27 08:00)
DX: Z12.11 Encounter for screening for malignant neoplasm of colon (principal); Z86.010 Personal history of colon polyps; K63.5 Polyp of colon; K57.32 Diverticulitis of large intestine without perforation or abscess without bleeding; K64.0 First degree hemorrhoids; J44.9 Chronic obstructive pulmonary disease, unspecified; E11.9 Type 2 diabetes mellitus without complications; E78.5 Hyperlipidemia, unspecified; I10 Essential (primary) hypertension; N40.0 Benign prostatic hyperplasia without lower urinary tract symptoms; Z87.442 Personal history of urinary calculi; M19.90 Unspecified osteoarthritis, unspecified site
CPT/HCPCS: 45385; 82962

== ENCOUNTER → 2021-01-30 13:10 | Outpatient (CLI) | payer OTHER, SELFPAY ==
--- NOTE | 2021-01-30 13:15 | XR_ITS ---
PROCEDURE: XR KNEE RT 4V CLINICAL INDICATION: right knee pain, weightbearing COMPARISON: CR [id number] XR knee LT 4V from 04/30/2017 CR [id number] XR knee LT 4V from 05/22/2018 CR XR KNEE RT 4V from 01/20/2019 CR XR KNEE LT 2V from 01/20/2019 FINDINGS: Osteoarthritis is present involving all 3 compartments. There is minimal lateral displacement of the tibia by approximately 4 mm. There is sclerosis of the medial tibial plateau with a small central lucency and may be related to prior chondroplasty. There is vascular calcification. IMPRESSION: Osteoarthritis of all 3 compartments. This may be slightly progressed at the medial compartment. Suspected post chondroplasty changes at the proximal and medial aspect of the tibia Dictated by: Prosper Howard MD 01/30/2021 17:03 Prosper Howard MD in [place] 01/30/2021 17:03
== END ==
PROVIDERS: PCP Internal Medicine Adolescent Medicine; Visit Provider Orthopaedic Surgery
DX: M17.11 Unilateral primary osteoarthritis, right knee (principal)
CPT/HCPCS: 73564

== ENCOUNTER → 2021-03-06 18:17 | Outpatient (CLI) | payer OTHER, SELFPAY ==
[2021-03-06 19:07] LABS: Hemoglobin A1C 8.1 % (4.0-6.0)
[2021-03-06 19:30] LABS: Anion Gap 12.2 mEq/L (5-15); Blood Urea Nitrogen 18 mg/dl (9-20); Calcium 10.1 mg/dl (8.4-10.2); Carbon Dioxide 25 mmol/L (22.0-30.0); Chloride 102 mmol/L (98-107); Estimated Glomerular Filt Rate 98 ml/min (>60); GFR (African American) 119 ML/MIN (>60); Glucose 85 mg/dl (74-100); Potassium 4.2 mmoL/L (3.5-5.1); Sodium 135 mmol/L (136-145)
== END ==
PROVIDERS: Visit Provider Internal Medicine Adolescent Medicine
DX: E11.9 Type 2 diabetes mellitus without complications (principal); Z79.4 Long term (current) use of insulin
CPT/HCPCS: 80048; 83036

== ENCOUNTER → 2022-01-24 13:45 | Outpatient (CLI) | payer OTHER, SELFPAY ==
[2022-01-24 15:24] VITALS: BMI 35.9
== END ==
PROVIDERS: PCP Internal Medicine Adolescent Medicine; Visit Provider Internal Medicine Adolescent Medicine
DX: Z71.3 Dietary counseling and surveillance (principal); E11.9 Type 2 diabetes mellitus without complications
CPT/HCPCS: 97802

== ENCOUNTER → 2022-08-01 14:07 | Outpatient (CLI) | payer OTHER, SELFPAY ==
--- NOTE | 2022-08-01 14:12 | CT_ITS ---
FINAL REPORT TECHNIQUE: Routine axial images were obtained from the lung apices to below the diaphragm following IV contrast administration. Individualized dose reduction techniques using automated exposure control or adjustment of the mA and/or kV according to the patient size were employed. CLINICAL HISTORY: PULMONARY NODULE COMPARISON: 10/05/2020 FINDINGS: No pleural or pericardial effusion is seen. There are calcified right paratracheal, precarinal, and subcarinal lymph nodes. Again seen is an ill-defined density in the left upper lobe lung, unchanged and best seen on image 49 of series 2. There is biapical pleural parenchymal scarring. There is a new 9 mm noncalcified nodule in the right upper lobe best seen on image 41 series 2. Scarring is noted in the right mid lung. IMPRESSION: New 9 mm noncalcified nodule right upper lobe concerning for malignancy. Per Fleischner criteria, recommend PET-CT. Reviewed, Interpreted and Dictated by Brad Turner MD Transcribed by Jesika Olivo Authenticated and [facility]
== END ==
PROVIDERS: PCP Internal Medicine Adolescent Medicine; Visit Provider Internal Medicine Adolescent Medicine
DX: R91.1 Solitary pulmonary nodule (principal)
CPT/HCPCS: 71260; Q9967